=== PATIENT | female | born 1945 | race Caucasian/White ===

== ENCOUNTER → 2016-08-18 | Outpatient (CLI) | payer BC, MEDICARE ==
--- NOTE | 2016-08-23 14:33 | SLEEP ---
DATE OF STUDY: 08/18/2016 REFERRING PHYSICIAN: Dr. Zaida Magdaleno. The patient is a 71-year-old who weighs 132 pounds with a BMI of 24.1. The patient's Whiteclay score was 11. Home sleep study was performed by [facility]. The total recording time was 465 minutes. During the night study, the patient had no central apneas, but 20 obstructive and 27 mixed apneas. There were 18 hypopneas. The patient's apnea hypopnea index was 8.4 per hour with a supine index of 9.1 per hour. Review of nocturnal oximetry study revealed that patient spent only 1.8 minutes with oxygen saturation of less than 90%. The mean heart rate was 56 beats per minute. IMPRESSION: 1. Mild sleep apnea-hypopnea syndrome at an apnea-hypopnea index of 8.4 per hour. 2. No clinically significant nocturnal hypoxia. RECOMMENDATIONS: 1. The patient has mild sleep apnea. Treatment option would include a trial of oral appliance as recommended by the dentist or CPAP titration study. 2. If the patient undergoes CPAP titration study, then she should be followed up in 4-6 weeks to assess compliance with CPAP and to document clinical improvement. 3. Avoid [employer] depressants. RACHAEL GARCIA MD DR: SHIRA/meaghan JOB#: [id number] / [id number] ZAIDA Kaye MD
== END | disposition home or self-care (01) ==
LOC: RT 08:04
PROVIDERS: ATTEND Family Medicine
DX: G47.30 Sleep apnea, unspecified (principal)
CPT/HCPCS: G0399

== ENCOUNTER → 2016-08-29 | Outpatient (CLI) | payer BC, MEDICARE ==
--- NOTE | 2016-08-29 09:13 | CARD ---
APPROVED REPORT EXAM: Two-dimensional and M-mode echocardiogram with Doppler and color Doppler. Other Information Quality : GoodHR: 62bpm Rhythm : NSR INDICATION LVH (on EKG) 2D DIMENSIONS RVDd2.7 (2.9-3.5cm)Left Atrium(2D)2.5 (1.6-4.0cm) IVSd0.9 (0.7-1.1cm)Aortic Root(2D)3.0 (2.0-3.7cm) LVDd3.7 (3.9-5.9cm)LVOT Diameter2.0 (1.8-2.4cm) PWd1.0 (0.7-1.1cm)LVDs2.5 (2.5-4.0cm) FS (%) 31.4 %SV35.0 ml LVEF(%)60.1 (>50%) Aortic Valve AoV Peak Alexei.115.4cm/sAoV VTI21.7cm AO Peak GR.5.3mmHgLVOT Peak Alexei.93.1cm/s AO Mean GR.3mmHgAVA (VMAX)2.56cm2 Mitral Valve MV E Coykvjvq96.7cm/sMV E Peak Gr.3mmHg MV DECEL VAZS055tsUG A Aggtztci888.5cm/s MV E Mean Gr.1mmHgE/A Ratio0.6 MV A Iylsyuoo41se Pulmonary Valve PV Peak Hnlfywcl19.4cm/s Tricuspid Valve TR P. Wzqrthpz013pi/sTR Peak Gr.27mmHg Pulmonary Vein S1 Sucubfzz64.0cm/sD2 Vwiivisp09.9cm/s PVa oakebeyp91pjhs LEFT VENTRICLE The left ventricle is normal size. There is normal left ventricular wall thickness. The left ventricu lar systolic function is normal and the ejection fraction is within normal range. The Ejection Fracti on is 55-60%. There is normal LV segmental wall motion. Transmitral Doppler flow pattern is Grade I-a bnormal relaxation pattern. RIGHT VENTRICLE The right ventricle is normal size. There is normal right ventricular wall thickness. The right ventr icular systolic function is normal. ATRIA The left atrium size is normal. The right atrium size is normal. The interatrial septum is intact wit h no evidence for an atrial septal defect or patent foramen ovale as noted on 2-D or Doppler imaging. AORTIC VALVE The aortic valve is mildly sclerotic. The aortic valve is trileaflet. Doppler and Color Flow revealed no significant aortic regurgitation. There is no significant aortic valvular stenosis. MITRAL VALVE Mitral annular calcification is mild. The mitral valve leaflets are thickened. There is no evidence o f mitral valve prolapse. There is no mitral valve stenosis. Doppler and Color Flow revealed trace ojselyn ral regurgitation. TRICUSPID VALVE Doppler and Color Flow revealed trace tricuspid regurgitation. The pulmonary artery systolic pressure is estimated at 31 mmHg. PULMONIC VALVE Doppler and Color Flow revealed no pulmonic valvular regurgitation. There is no pulmonic valvular carloz nosis. GREAT VESSELS The aortic root is normal in size. The ascending aorta is normal in size. The pulmonary artery is nor mal. The IVC is normal in size and collapses >50% with inspiration. PERICARDIAL EFFUSION There is no evidence of significant pericardial effusion. Critical Notification Critical Value: No <Conclusion> The left ventricle is normal size. The left ventricular systolic function is normal and the ejection fraction is within normal range. The Ejection Fraction is 55-60%. There is no significant aortic valvular stenosis. Doppler and Color Flow revealed no significant aortic regurgitation. Doppler and Color Flow revealed trace mitral regurgitation. Doppler and Color Flow revealed trace tricuspid regurgitation. The pulmonary artery systolic pressure is estimated at 31 mmHg.
== END | disposition home or self-care (01) ==
LOC: ECHO 07:58
PROVIDERS: ATTEND Family Medicine
DX: I50.1 Left ventricular failure, unspecified (principal); I08.1 Rheumatic disorders of both mitral and tricuspid valves
CPT/HCPCS: 93306

== ENCOUNTER → 2020-07-07 | Outpatient (CLI) | payer BC ==
[~2020-07-07] MED LIST: REGADENOSON 0.4 MG/5 ML DISP.SYRIN. IV ONE
--- NOTE | 2020-07-07 09:11 | CARD ---
MR#: [id number] Date of Study: 07/07/2020 Ordering Physician: SHANTAL LOAIZA, Referring Physician: SHANTAL LOAIZA, Tech: Dede Amador [facility] APPROVED REPORT EXAM: Two-dimensional and M-mode echocardiogram with Doppler and color Doppler. Other Information Quality : AverageHR: 72bpm INDICATION Dyspnea 2D DIMENSIONS RVDd2.8 (2.9-3.5cm)Left Atrium(2D)2.8 (1.6-4.0cm) IVSd0.7 (0.7-1.1cm)Aortic Root(2D)3.0 (2.0-3.7cm) LVDd4.2 (3.9-5.9cm)LVOT Diameter1.9 (1.8-2.4cm) PWd0.7 (0.7-1.1cm)LVDs2.6 (2.5-4.0cm) FS (%) 39.2 %SV56.1 ml LVEF(%)62.0 (>50%) Aortic Valve AoV Peak Alexei.105.0cm/sAoV VTI20.2cm AO Peak GR.4.4mmHgLVOT Peak Alexei.85.6cm/s LVOT VTI 17.16cmAO Mean GR.2mmHg CHEMO (VMAX)1.08ue9TSJ (VTI)2.43cm2 Mitral Valve MV E Gespdokz63.2cm/sMV DECEL NQXT069yv MV A Lgvocolp69.1cm/sMV LZB99in E/A Ratio0.7MVA (PHT)2.69cm2 TDI E/Lateral E'4.7E/Medial E'7.0 Pulmonary Valve PV Peak Uinatehu93.4cm/sPV Peak Grad.2mmHg Tricuspid Valve TR P. Fgevbrqb185vz/sTR Peak Gr.22mmHg Pulmonary Vein S1 Uidsjaek19.6cm/sD2 Xekczkkp22.7cm/s PVa [id number] LEFT VENTRICLE The left ventricle is normal size. There is normal left ventricular wall thickness. The left ventricu lar systolic function is normal. The Ejection Fraction is 55-60%. There is normal LV segmental wall m otion. Transmitral Doppler flow pattern is Grade I-abnormal relaxation pattern. RIGHT VENTRICLE The right ventricle is normal size. There is normal right ventricular wall thickness. The right ventr icular systolic function is normal. ATRIA The left atrium size is normal. The right atrium size is normal. The interatrial septum is intact wit h no evidence for an atrial septal defect or patent foramen ovale as noted on 2-D or Doppler imaging. AORTIC VALVE The aortic valve is normal in structure and function. Doppler and Color Flow revealed no significant aortic regurgitation. There is no significant aortic valvular stenosis. Calculated aortic valve area is 2.38 cm2 with maximum pressure gradient of 5 mmHg and mean pressure gradient of 3 mmHg. MITRAL VALVE The mitral valve is normal in structure and function. There is no evidence of mitral valve prolapse. There is no mitral valve stenosis. Doppler and Color-flow revealed trace mitral regurgitation. TRICUSPID VALVE The tricuspid valve is normal in structure and function. Doppler and Color Flow revealed trace tricus pid regurgitation with an estimated PAP of 27 mmHg. There is no tricuspid valve stenosis. PULMONIC VALVE The pulmonic valve is not well visualized. Doppler and Color Flow revealed no pulmonic valvular regur gitation. GREAT VESSELS The aortic root is normal in size. The IVC is normal in size and collapses >50% with inspiration. PERICARDIAL EFFUSION There is no evidence of significant pericardial effusion. Critical Notification Critical Value: No <Conclusion> The left ventricular systolic function is normal. The Ejection Fraction is 55-60%. There is normal LV segmental wall motion. Transmitral Doppler flow pattern is Grade I-abnormal relaxation pattern. Trace mitral regurgitation. Trace tricuspid regurgitation with an estimated PAP of 27 mmHg. There is no evidence of significant pericardial effusion. Signed by : Shantal Loaiza, Electronically Approved : 07/07/2020 09:11:06
--- NOTE | 2020-07-07 14:25 | RAD ---
MR#: [id number] Date of Study: 07/07/2020 Ordering Physician: SHANTAL WOOD, Referring Physician: JEFF DILLON Tech: BIJAL Rueda APPROVED REPORT Test Type: Pharmacological Stress Nurse/Tech: Bernabe Laura RN Test Indications: Dyspnea on exertion Cardiac History: x-smoker Medications: See Electronic Medical Record Medical History: See Electronic Medical Record Resting ECG: SR Resting Heart Rate: 68 bpm Resting Blood Pressure: 134/62mmHg Pretest Chest Pain: None Nurse/Tech Notes Lungs CTA, S1S2 Consent: The procedure was explained to the patient in lay terms. Informed consent was witnessed. Robert eout was entered into [employer]. History and Stress Test performed by FLACA Correia, ARRT (R) (N) Pharm. Details Pharmacologic stress testing was performed using 0.4mg per 5ml of regadenoson given intravenously ove r 7-10 seconds. Stress Symptoms No chest pain or symptoms. POST EXERCISE Reason for Termination: Infusion complete Target HR: 96 Max Blood Pressure: 133/63mmHg Blood Pressure response to exercise: Normal blood pressure response during stress. Heart Rate response to exercise: normal response Chest Pain: No. Arrhythmia: No. ST Change: No. INTERPRETATION Stress EKG Conclusion: Baseline EKG showed sinus rhythm. No ischemic changes at peak stress. No arr hythmias. Imaging Protocol IMAGE PROTOCOL: Rest Tc-99m/stress Tc-99m 1 day Rest: Stress: Viability: Radiopharm.Tc99m HgkvebghhXy57r Sestamibi Jmyz83zHe 32mCi Duration 15min. 10min. Img Date 07/07/2020 07/07/2020 Inj-Img Jmhi58qtg. 60min. Rest Admin Site:IV - Right AntecubitalAdministrator:RT Arden (R)(N) Stress Admin Site: IV - Right AntecubitalAdministrator: RT Arden (R)(N) STRESS DATA End Diast. Vol.46.0mlAv. Heart Rate70.0bpm End Syst. Vol.9.0mlCO Index BSA0.0L/min Myocardial Mass89.0gEject. Suamhpid32.0% Stress Rates Pk. Fill Rate2.51EDV/secLVtime Pk. Fill 276.88msec Pk. Empty Rate5.16ESV/secLVtime Pk. Zsdul273.03msec 1/3 Pk. Fill1.00EDV/sec Stress Scores Regional WT0.00Summed WT0.00 Regional WM0.00Summed WM0.00 Study quality was good. Left Ventricular size was Normal at Rest and Stress. Lung uptake was . Left Ventricular ejection fraction is 77%. The rest and stress images show normal perfusion, normal contraction and thickening. LV Perf. Quant 17 Seg. SSS10.00 17 Seg. SRS10.00 17 Seg. SDS4.00 Stress Defect Extent (% LAD)0.00Rest Defect Extent (% LAD)2.50Rev. Defect Extent (% LAD)0.00 Stress Defect Extent (% LCX) 18.80Rest Defect Extent (% LCX)36.30Rev. Defect Extent (% LCX)0.00 Stress Defect Extent (% RCA)7.80Rest Defect Extent (% RCA)5.60Rev. Defect Extent (% RCA)0.00 Stress Defect Extent (% CHERIE)9.60Rest Defect Extent (% CHERIE)15.20Rev. Defect Extent (% CHERIE)1.30 Conclusion 1. Regadenoson cardioisotope stress test did not show any evidence of ischemia or infarct. 2. Normal left ventricular systolic function with ejection fraction calculated at 77%. 3. Low risk for cardiac events. Signed by : Shantal Wood, Electronically Approved : 07/07/2020 14:24:53
== END ==
LOC: ECHO 07:43
PROVIDERS: ATTEND Internal Medicine Cardiovascular Disease
DX: R06.00 Dyspnea, unspecified (principal); Z87.891 Personal history of nicotine dependence
CPT/HCPCS: 78452; 93017; 93306; A9500; J2785